=== PATIENT | female | born 1990 | race Asian ===

== ENCOUNTER 2017-07-17 07:04 | Emergency (ER) | payer OTHER ==
[~2017-07-17] VITALS: Ht 165.1 cm; Wt 56.2 kg
[2017-07-17 07:12] VITALS: Ht 165.1 cm; Wt 56.2 kg
[2017-07-17] MEDS ORDERED: SODIUM CHLORIDE 0.9% 1000ML 1,000 ML IV STA (07:37)
[2017-07-17] MEDS ORDERED: KETOROLAC TROMETHAMINE 30 MG/ML VIAL IV STA (07:47)
[2017-07-17 08:03] LABS: HEMATOCRIT 42.8 % (37-47); HEMOGLOBIN 14.8 g/dL (12.0-16.0); IG# 0.01 K/uL (0.00-0.02); LYMPH % 45.3 %; LYMPH ABS # 1.17 K/uL (1.2-3.4); MEAN CELL VOLUME 91.1 fL (80-100); MEAN CORPUSCULAR HEMOGLOBIN 31.5 pg (25-34); MEAN CORPUSCULAR HGB CONC 34.6 g/dl (32-36); MEAN PLATELET VOLUME 9.8 fL (7.4-10.4); MONO % 14.7 %; MONO ABS # 0.38 K/uL (0.11-0.59); NEUT % 39.6 %; NEUT ABS # 1.02 K/uL (1.4-6.5); PLATELET COUNT 188 K/uL (130-400); RED CELL DISTRIBUTION WIDTH CV 13.7 % (11.5-14.5); RED CELL DISTRIBUTION WIDTH SD 46.3 fL (36.4-46.3); WHITE BLOOD COUNT 2.58 K/uL (4.8-10.8)
--- NOTE | 2017-07-17 08:10 | DIAGNOSTIC IMAGING REPORT ---
HEAD WITHOUT CONTRAST (CT) CT DOSE: 537.48 mGy.cm HISTORY: Fever. Mental status change. Headache, sudden onset TECHNIQUE: Multiaxial CT images of the head were performed without the use of intravenous contrast. A dose lowering technique was utilized adhering to the principles of ALARA. Comparison: None. Findings: The paranasal sinuses and mastoid air cells are clear. The calvarium and skull base are intact. The ventricles and sulci are within normal limits. There is no mass, hematoma, midline shift, or acute infarct. Impression: No acute intracranial abnormality. The above report was generated using voice recognition software. It may contain grammatical, syntax or spelling errors. Electronically signed by: Mark Mora M.D. 07/17/2017 8:09 AM Dictated Date/Time: 07/17/2017 8:08 AM
[2017-07-17 08:20] LABS: ALBUMIN 4.1 gm/dl (3.4-5.0); CREATININE 0.82 mg/dl (0.60-1.20); POTASSIUM 3.7 mmol/L (3.5-5.1)
[2017-07-17 08:23] LABS: TOTAL PROTEIN 7.9 gm/dl (6.4-8.2)
--- NOTE | 2017-07-17 08:28 | EMERGENCY ROOM VISIT NOTE ---
History First contact with patient: 07:17 Chief Complaint: HEADACHE Stated Complaint: HEAD,PUFFINESS History of Present Illness The patient is a 26 year old female who presents to the Emergency Room via private vehicle with complaints of "head, puffiness". The patient states that she has been experiencing an illness for the past 4 days to include achy joints , sore throat and fever. She notes that this has begun to resolve however the past 2 days she has had puffiness in her face and last night began with a headache around 1 or 2 AM. She states that she now feels nauseous, decreased appetite and difficulty sleeping. She denies any recent contact with sick individuals, recent travel, significant past medical history, or allergies. Immunizations are current. She took ibuprofen and temperature relieving medications but none within the past 8 hours. She states that the headache was of sudden onset and is severe. 10/10 pain rating. 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 Review of Systems A complete 10-point Review of Systems was discussed with the patient, with pertinent positives and negatives listed in the History of Present Illness. All remaining Review of Systems questions can be considered negative unless otherwise specified. Past Medical/Surgical History No pertinent. Family History Noncontributory. Social History Smoking Status: Never Smoker Patient lives locally. Current/Historical Medications No Active Prescriptions or Reported Meds Physical Exam Vital Signs Date Time Temp Pulse Resp B/P (MAP) Pulse Ox O2 Delivery O2 Flow Rate FiO2 07/17/17 08:42 36.5 59 16 96/71 100 Room Air 07/17/17 07:12 37.0 75 20 108/74 100 Room Air Physical Exam VITAL SIGNS - Vital signs and nursing notes were reviewed. Stable. Afebrile. GENERAL -26-year-old female appearing her stated age who is in no acute distress. Communicates well with provider and answers questions appropriately. SKIN - Without rashes. No meningeal or petechial rash. There is perhaps minimal puffiness to the face, but very minimal. HEAD - NC/AT. EYES - PERRL with EOMI bilaterally. Sclera anicteric. EARS - No deformities of external structures noted on gross examination bilaterally. External auditory canals without discharge or otorrhea. Tympanic membranes pearly [place] without retraction or bulging. No fluid or purulent material visualized behind the TM. Handle of malleus, umbo, cone of light, pars tensa/flaccid all easily visualized. NOSE - Midline and without cyanosis. No epistaxis or purulent drainage noted. MOUTH/OROPHARYNX - Without perioral cyanosis. Buccal mucosa pink and moist and without leukoplakia. Tongue midline with equal elevation of palate bilaterally. No tonsillar hypertrophy, erythema, or exudates noted. Fair dentition noted. NECK - Neck with FROM. Supple to palpation. Minimal anterior cervical lymphadenopathy noted. No nuchal rigidity. No evidence of meningitis on exam. Normal LUNGS - Chest wall symmetric without accessory muscle use, intercostals retractions, or central cyanosis. Normal vesicular breath sounds CTA B/L. No wheezes, rales, or rhonchi appreciated. CARDIAC - RRR with S1/S2. No murmur, rubs, or gallops appreciated. ABDOMEN - Abdominal contour normal without pulsations or visible masses. BS normoactive all four quadrants. No tenderness, palpable masses, hepatosplenomegaly, or ascites noted. EXTREMITIES - No clubbing or peripheral cyanosis. No pretibial edema present. + 5/5 strength noted in UE/LE bilaterally. NEUROLOGIC - Cranial nerves II through XII grossly intact. Sensory intact to light touch throughout. Patellar reflexes +2/4. PSYCH - A&Ox3 and cooperates fully with examiner. Pt is very pleasant and interacts well with examiner. Medical Decision & Procedures ER Provider Diagnostic Interpretation: [~ rep ct add3]] HEAD WITHOUT CONTRAST (CT) CT DOSE: 537.48 mGy.cm HISTORY: Fever. Mental status change. Headache, sudden onset TECHNIQUE: Multiaxial CT images of the head were performed without the use of intravenous contrast. A dose lowering technique was utilized adhering to the principles of ALARA. Comparison: None. Findings: The paranasal sinuses and mastoid air cells are clear. The calvarium and skull base are intact. The ventricles and sulci are within normal limits. There is no mass, hematoma, midline shift, or acute infarct. Impression: No acute intracranial abnormality. The above report was generated using voice recognition software. It may contain grammatical, syntax or spelling errors. Electronically signed by: Mark Mora M.D. 07/17/2017 8:09 AM Dictated Date/Time: 07/17/2017 8:08 AM Laboratory Results 07/17/17 07:47 Red Blood Count 4.70, Mean Corpuscular Volume 91.1, Mean Corpuscular Hemoglobin 31.5, Mean Corpuscular Hemoglobin Concent 34.6, Mean Platelet Volume 9.8, Neutrophils (%) (Auto) 39.6, Lymphocytes (%) (Auto) 45.3, Monocytes (%) (Auto) 14.7, Eosinophils (%) (Auto) 0.0, Basophils (%) (Auto) 0.0, Neutrophils # (Auto ) 1.02, Lymphocytes # (Auto) 1.17, Monocytes # (Auto) 0.38, Eosinophils # (Auto ) 0.00, Basophils # (Auto) 0.00 07/17/17 07:47 Test 07/17/17 07:43 07/17/17 07:47 Urine Color YELLOW Urine Appearance CLEAR (CLEAR) Urine pH 7.0 (4.5-7.5) Urine Specific [place] 1.007 (1.000-1.030) Urine Protein NEG (NEG) Urine Glucose (UA) NEG (NEG) Urine Ketones TRACE (NEG) Urine Occult Blood NEG (NEG) Urine Nitrite NEG (NEG) Urine Bilirubin NEG (NEG) Urine Urobilinogen NEG (NEG) Urine Leukocyte Esterase NEG (NEG) Urine Test NEG (NEG) White Blood Count 2.58 K/uL (4.8-10.8) Red Blood Count 4.70 M/uL (4.2-5.4) Hemoglobin 14.8 g/dL (12.0-16.0) Hematocrit 42.8 % (37-47) Mean Corpuscular Volume 91.1 fL (80-100) Mean Corpuscular Hemoglobin 31.5 pg (25-34) Mean Corpuscular Hemoglobin Concent 34.6 g/dl (32-36) Platelet Count 188 K/uL (130-400) Mean Platelet Volume 9.8 fL (7.4-10.4) Neutrophils (%) (Auto) 39.6 % Lymphocytes (%) (Auto) 45.3 % Monocytes (%) (Auto) 14.7 % Eosinophils (%) (Auto) 0.0 % Basophils (%) (Auto) 0.0 % Neutrophils # (Auto) 1.02 K/uL (1.4-6.5) Lymphocytes # (Auto) 1.17 K/uL (1.2-3.4) Monocytes # (Auto) 0.38 K/uL (0.11-0.59) Eosinophils # (Auto) 0.00 K/uL (0-0.5) Basophils # (Auto) 0.00 K/uL (0-0.2) RDW Standard Deviation 46.3 fL (36.4-46.3) RDW Coefficient of Variation 13.7 % (11.5-14.5) Immature Granulocyte % (Auto) 0.4 % Immature Granulocyte # (Auto) 0.01 K/uL (0.00-0.02) Anion Gap 4.0 mmol/L (3-11) Est Creatinine Clear Calc Drug Dose 93.0 ml/min Estimated GFR () 115.3 Estimated GFR (Non- 99.5 BUN/Creatinine Ratio 9.7 (10-20) Calcium Level 9.0 mg/dl (8.5-10.1) Total Bilirubin 0.2 mg/dl (0.2-1) Aspartate Amino Transf (AST/SGOT) 26 U/L (15-37) Alanine Aminotransferase (ALT/SGPT) 30 U/L (12-78) Alkaline Phosphatase 48 U/L (45-117) C-Reactive Protein 1.62 mg/dl (0-0.29) Total Protein 7.9 gm/dl (6.4-8.2) Albumin 4.1 gm/dl (3.4-5.0) Globulin 3.8 gm/dl (2.5-4.0) Albumin/Globulin Ratio 1.1 (0.9-2) Monoscreen NEG (NEG) Influenza Type A Antigen Neg for Influ A (NEG) Influenza Type B Antigen Neg for Influ B (NEG) Medications Administered Medications (Trade) Dose Ordered Sig/William Route Start Time Stop Time Status Last Admin Dose Admin Sodium Chloride 1,000 ml @ 999 mls/hr Q1H1M STAT IV 07/17/17 07:37 07/17/17 08:37 DC 07/17/17 07:58 999 MLS/HR Ketorolac Tromethamine (Toradol Inj) 30 mg NOW STAT IV 07/17/17 07:47 07/17/17 07:49 DC 07/17/17 07:58 30 MG Medical Decision Patient was seen and evaluated as above. She presents with a headache and other symptoms similar to that of a viral process like a flu. Review was performed of nursing notes and vital signs. After obtaining a thorough history and physical examination the above work up was performed. CT scan was obtained the head because of her presentation. This was negative. On exam she is nontoxic. She was given Toradol and fluids and felt much better. The headache was completely alleviated. There is no meningismus before or after the medication. There is no concerning leukocytosis. Slight decrease in white count which I favor to be likely from viral process. No concerning anemia. No concerning metabolic process. Urine negative. Urine patency test negative. She is to follow with [facility] or return with worsening. No evidence of emergent process on exam. We discussed whether or not to perform lumbar puncture however it was felt that clinically she is doing very well, and has no signs or symptoms suggestive of meningitis at this time. It was felt that the risk of lumbar puncture was greater than the benefit. The patient was educated upon management, had questions answered prior to discharge, and was discharged home in good condition. Case was discussed with the attending physician. In the evaluation and treatment of this patient, the following differential diagnoses were considered: Migraine Headache, Intracranial Hemorrhage, Subdural Hematoma, Subarachnoid Hemorrhage, Cerebral Aneurysm, Temporal/Giant Cell Arteritis, Tension Headache, Meningitis, Encephalitis, or Hydrocephalus. Impression Primary Impression: Headache Additional Impression: Influenza-like illness Departure Information Dispostion Home / Self-Care Condition GOOD Prescriptions No Active Prescriptions or Reported Meds Referrals No Doctor, Assigned (PCP) [facility] Patient Instructions [facility] Additional Instructions You have been treated in the Emergency Department for a Headache. At this time I suspect you are likely experiencing a viral illness like the flu. For the puffiness/swelling I recommend Benadryl. 25 mg every 6 hours for the next few days. This will make you tired. Please be careful and only take this towards bedtime. I do recommend staying well-hydrated. For pain control, you can use the following [id number] medicines: - Regular strength (325mg/tab) Tylenol (acetaminophen) 2 tabs every 4-6 hours as needed. Do not exceed 12 tablets in a 24 hour period. Avoid taking more than 3 grams (3000 mg) of Tylenol per day. This includes any other sources of acetaminophen you may take on a regular basis. - Regular strength (200 mg/tab) Advil (ibuprofen) 1-2 tabs every 4-6 hours as needed. Do not exceed a dose of 3200 mg per day. You should relax in a quiet, dark place for the rest of the day. Avoid any possible triggers including: cigarette smoke, caffeine, nicotine, chocolate, wine, beer, loud noises or music, or bright lights. You should schedule a follow-up appointment in 2-3 days with your Primary Care Provider/[facility]. Please return with worsening. Return to the Emergency Department if your current symptoms worsen despite treatment course outlined above, or if you develop any of the following symptoms : intractable pain despite aforementioned treatment course, visual disturbances , loss of vision, unilateral weakness or facial drooping, slurring of speech, loss of coordination, or loss of consciousness. Problem Qualifiers
[2017-07-17 08:38] LABS: INFLUENZA B ANTIGEN Neg for Influ B (NEG)
[2017-07-17 08:42] VITALS: TEMP 36.5
[2017-07-17 10:10] VITALS: BP 98/63; PULSE 71; O2SAT 100
== END 2017-07-17 10:19 | disposition home or self-care (01) ==
LOC: C.EDB 07:05 → C.EDA 10:19
DX: R51 Headache (principal); R50.9 Fever, unspecified; J02.9 Acute pharyngitis, unspecified; M25.50 Pain in unspecified joint